=== PATIENT | female | born 1980 | race Caucasian/White ===

== ENCOUNTER 2024-03-13 08:36 | Outpatient (CLI) | payer BC | END 2024-03-13 23:59 | disposition home or self-care (01) | LOC: MRI 08:36 | PROVIDERS: ATTEND Family Medicine | DX: S83.271A Complex tear of lateral meniscus, current injury, right knee, initial encounter (principal); M17.11 Unilateral primary osteoarthritis, right knee; M25.561 Pain in right knee; X58.XXXA Exposure to other specified factors, initial encounter; Y93.89 Activity, other specified; Y92.89 Other specified places as the place of occurrence of the external cause; Y99.8 Other external cause status | CPT/HCPCS: 73721-TC ==

== ENCOUNTER 2024-11-30 09:18 | Emergency (ER) | payer BC ==
[~2024-11-30] VITALS: Ht 167.6 cm; Wt 88.5 kg
[2024-11-30 09:22] VITALS: BP 126/71; TEMP 98.3
[2024-11-30 09:41] VITALS: O2SAT 99
== END 2024-11-30 09:48 | disposition home or self-care (01) ==
LOC: ER 09:45
DX: M75.22 Bicipital tendinitis, left shoulder (principal); Z60.2 Problems related to living alone

== ENCOUNTER 2024-12-07 20:20 | Outpatient (CLI) | payer BC | END 2024-12-07 23:59 | disposition home or self-care (01) | LOC: MRI 20:20 | PROVIDERS: ATTEND Family Medicine | DX: M75.102 Unspecified rotator cuff tear or rupture of left shoulder, not specified as traumatic (principal); M25.462 Effusion, left knee; M75.52 Bursitis of left shoulder | CPT/HCPCS: 73221-TC; 73721-TC ==